=== PATIENT | female | born 1985 | race Hispanic/Latino ===

== ENCOUNTER 2022-04-03 10:04 | Emergency (ER) | payer MEDICAID, OTHER ==
[~2022-04-03] VITALS: Ht 157.5 cm; Wt 107.0 kg
[2022-04-03 10:09] VITALS: BP 144/86
[2022-04-03] MEDS ORDERED: HYDROXYZINE 100MG/2ML VIAL IM STA (10:34)
[2022-04-03] MEDS ORDERED: HYDROXYZINE 50MG VIAL 50 MG/ML VIAL IM STA (11:09)
[2022-04-03] MEDS ORDERED: KETOROLAC 30MG VIAL (30MG/ML) IM ONE (12:00)
[2022-04-03] MEDS ORDERED: BUSP15 PO (12:14)
== END 2022-04-03 12:49 | disposition home or self-care (01) ==
LOC: EDH 10:04
DX: S29.012A Strain of muscle and tendon of back wall of thorax, initial encounter (principal); F41.9 Anxiety disorder, unspecified; E78.00 Pure hypercholesterolemia, unspecified; X58.XXXA Exposure to other specified factors, initial encounter; Y93.89 Activity, other specified; Y92.89 Other specified places as the place of occurrence of the external cause; Y99.8 Other external cause status
CPT/HCPCS: 99284; 96372 ×2; 93005; J3410; J1885